=== PATIENT | female | born 1930 | race Caucasian/White ===

== ENCOUNTER → 2017-04-14 | Outpatient (CLI) | payer MEDICARE, OTHER | END | disposition home or self-care (01) | LOC: LABPAT 15:12 | PROVIDERS: ATTEND Orthopaedic Surgery | DX: Z01.812 Encounter for preprocedural laboratory examination (principal) | CPT/HCPCS: 87070 ==

== ENCOUNTER 2017-04-29 10:37 | Inpatient (IN) | payer MEDICARE, OTHER ==
[2017-04-20 13:50] VITALS: BMI 26.5
[~2017-04-29 10:37] MED LIST: ACETAMINOPHEN TAB 500 MG TAB PO ONE; DEXAMETHASONE SOD PHOSPHATE 10 MG/ML 1 ML VIAL IV ONE; HYDROmorphone 1 MG/ML 1 ML SYRINGE IVP PRN; MELOXICAM 7.5 MG TAB PO ONE; MIDAZOLAM 2 MG/2 ML VIAL IV PRN; ONDANSETRON 4 MG/2 ML VIAL IVP ONE; TRANEXAMIC ACID 1,000 MG in SODIUM CHLORIDE 0.9% 100 ML IVPB ONE; ceFAZolin 2 GM in SODIUM CHLORIDE 0.9% 100 ML IVPB ONE
[2017-04-29] MEDS: LACTATED RINGERS 1,000 ML IV SCH (11:11)
[2017-04-29] MEDS ORDERED: LIDOCAINE 1% 20 ML VIAL (10MG/ML) FOR IV START INTRADERMA ONE (11:12)
[2017-04-29] MEDS ORDERED: ROPIVACAINE 246.25 MG, EPINEPHrine 0.5 MG, KETOROLAC 30 MG, cloNIDine HCL/PF 80 MCG, WA... MISCELLANE ONE ×5 (11:19)
[2017-04-29] MEDS ORDERED: NA PHOS,M-B/NA PHOS,DI-BA 133 ML ENEMA RECTAL PRN (11:22)
[2017-04-29] MEDS ORDERED: HYDROcodone/APAP 5-325MG 1 EACH TAB PO PRN ×2 (11:22)
[2017-04-29] MEDS ORDERED: HYDROmorphone 1 MG/ML 1 ML SYRINGE IVP PRN ×2 (11:22)
[2017-04-29] MEDS ORDERED: NALOXONE 0.4 MG/ML 1 ML VIAL IV PRN (11:22)
[2017-04-29] MEDS ORDERED: MAGNESIUM HYDROXIDE 2,400 MG/10 ML CUP PO PRN (11:22)
[2017-04-29] MEDS ORDERED: BISACODYL 10 MG SUPP RECTAL PRN (11:22)
[2017-04-29] MEDS ORDERED: DIAZEPAM 5 MG TAB PO PRN ×2 (11:22)
[2017-04-29] MEDS ORDERED: fentaNYL (PF) 50 MCG/ML 2 ML AMP IVP ONE (11:27)
[2017-04-29] MEDS ORDERED: PROPOFOL 10 MG/ML 20 ML VIAL IV ONE (12:29)
[2017-04-29] MEDS ORDERED: KETAMINE 10 MG/ML 20 ML VIAL ONE (12:29)
[2017-04-29] MEDS ORDERED: SODIUM CHLORIDE 0.9% 100 ML BAG ONE (12:29)
[2017-04-29] MEDS ORDERED: MIDAZOLAM 2 MG/2 ML VIAL ONE (12:29)
[2017-04-29] MEDS ORDERED: TRANEXAMIC ACID 1,000 MG/10 ML VIAL ONE (12:29)
[2017-04-29] MEDS ORDERED: ROPIVACAINE 1,100 MG, SODIUM CHLORIDE 0.9% 330 ML MISCELLANE PRN ×2 (13:46)
--- NOTE | 2017-04-29 13:48 | P.ONQ ---
Anesthesiology Proc Note - PNB - Peripheral Nerve Block Performed Left Adductor Canal Infusion Time Out Performed: Yes Indication: Acute Post-Operative Pain, Analgesia Specifically requested for management of pain by DrCody: Karl Valencia Sedation Type: Sedate with meaningful contact maintained Preparation: Sterile Prep Position: Supine Catheter Depth at Skin (cm): 6 Catheter: Indwelling Needle Types: Other (see comment) (pajunk) Needle Size: 100mm (4") Needle Gauge: 20 Technique: Ultrasound Injectate: 0.5% Ropivacaine (see comment for volume) (20cc) Blood Aspirated: No Pain Paresthesia on Injection Noted: No Resistance on Injection: Normal Events: Uneventful and Well Tolerated
--- NOTE | 2017-04-29 14:06 | P.OP ---
Date of Procedure: 04/29/17 Preoperative Diagnosis: Severe osteoarthritis left knee Postoperative Diagnosis: Severe osteoarthritis left knee Procedure(s) Performed: Left total knee arthroplasty Implants: Reid [employer] Nephew Oxinium femoral component size 5, left Reid & Nephew Graciela II left nonporous tibial baseplate size 4 Reid [employer] Nephew size 11 mm Legion XLPE high flexion articular insert, size 3-4 Reid [employer] Nephew Graciela II resurfacing patellar component, 32 mm All components were cemented using Nuno Palacos bone cement.. The articulation is ceramic on polyethylene. Anesthesia: spinal Surgeon: Karl Valencia High [facility] Justice #1: Geni Gomez Estimated Blood Loss (ml): 50 Pathology: other (Bone and cartilage) Condition: stable Disposition: PACU Indications for Procedure: After failure of conservative treatment we discussed the surgical and nonsurgical treatment options at length. Patient wishes to proceed with a total knee arthroplasty. Complications specific to this procedure were discussed at length, including but not limited to infection, bleeding, stiffness , and nerve injury. Patient is aware of all these complications and informed consent was obtained Operative Findings: The operative findings are consistent with severe osteoarthritis of the right knee Description of Procedure: Patient was seen in the preoperative area consent was reviewed and operative site was marked with a skin marker. An adductor canal pain catheter was placed by anesthesia in the preoperative area. Patient was then brought to the operating room and given preoperative antibiotics intravenously. A spinal anesthetic was administered by the anesthesia department. A tourniquet was placed on the upper thigh and the lower extremity was prepped and draped in usual sterile fashion. A gram of transexamic acid was given. A universal timeout was then performed which confirmed the patient's name, surgical site, ALLERGIES, and consent. The lower extremity was then exsanguinated and tourniquet was inflated to 250 mmHg. A standard and anterior midline approach to the knee was performed. The skin and subcutaneous tissue was dissected down to the patellar tendon. A medial parapatellar arthrotomy was then performed. The knee was then extended, the patellar was everted, and the knee was again flexed. Anterior horns of both menisci were excised, and a release was performed to the posterior medial aspect of the knee. On gross visual inspection, there was complete loss of articular cartilage in the medial and patellofemoral joint spaces. There was also significant cartilage damage in the lateral compartment. There were multiple periarticular osteophytes which were then removed with a Ronguer. The femoral canal was then opened with the appropriate drill, and the intramedullary femoral cutting guide was then placed and set for 4 of valgus. The distal femoral cutting block was then pinned in place, and the distal femur was then cut. The cutting block was then removed and the cut was checked for flatness. Next, the sizing guide was then placed and set for 3 external rotation based off of the epicondylar axis and Whitesides line. After the femur was sized, the appropriate 4-in-1 cutting block was then pinned in place. The anterior condyles were cut without notching. The posterior and chamfer cuts were performed while protecting the collateral ligaments. The cutting block was then removed, and the femoral canal was plugged with autologous bone. Attention was then directed to the tibia. The remaining ACL was removed with a Ronguer, and the tibia was then gently subluxed forward with a large bent knee retractor. Any remaining menisci was excised. The posterior lateral corner was cauterized in order to cauterize the lateral geniculate artery. The extra medullary tibial cutting guide was then placed, set for the appropriate rotation , slope, and depth of resection. The proximal tibia cutting guide was then pinned in place. Proximal tibia was then cut and sized. Next trials were then placed with the appropriate-sized insert. The knee was able to fully extend and flex to 130 and was stable throughout all range of motion. The knee was then extended, patella everted. Patella was then measured, and then using an osteotomy guide, the patella was cut at the appropriate level. The patella was then measured and drilled and the patella trial was then placed. The knee was then taken through range of motion with the patella trial and the patella tracked normally. The knee was then extended patella trial was then removed and the patella was everted. Knee was then flexed and lug holes were drilled through the femoral trial and the femoral trial was then removed. The tibial was then exposed, and the tibial broach guide was then pinned in place after it was set for the appropriate rotation to allow for the most coverage without overhang. The tibia was then reamed and broached. The cut surfaces of bone were then irrigated with pulsatile lavage. The posterior structures were injected with the ropivacaine solution. The knee was also irrigated with Irrisept solution. The components were then opened, the cement was mixed, and the components were then cemented in place. The cement was allowed to harden with the knee in full extension. While the cement was hardening, the remaining soft tissues were then injected with a ropivacaine solution, which consisted of 246.25 mg of ropivacaine, 0.5 mg of epinephrine, 30 mg of Toradol, 80 g of clonidine, and 48.45 mL of sterile water, for a total of 100 mL of fluid injected. After the cemented hardened. The tourniquet was released, and hemostasis was obtained. A second gram of transexamic acid was given. The knee was again irrigated. The knee was again taken through range of motion and found to be stable throughout all range of motion of 0-130 , and the patella tracked normally. The fascia was then closed with #2 strata fix suture. The subcutaneous tissue was closed with 3-0 Vicryl and 3-0 strata fix. Dermabond tape was used for the skin and placed with the knee in flexion. The patient was placed in a sterile dressing. Patient was then transferred to recovery room in stable condition. The regulatory affairs assistant RJ Bustillo was required due the complexity surgery and the need for a skilled service assistant. She assisted in positioning, draping, retraction, and closure of the wound.
[2017-04-29] MEDS ORDERED: LACTATED RINGERS 1,000 ML IV ONE (14:25)
--- NOTE | 2017-04-29 15:07 | XR ---
EXAMINATION TYPE: XR knee limited LT DATE OF EXAM: 04/29/2017 COMPARISON: NONE TECHNIQUE: Two views submitted HISTORY: Post op FINDINGS: There is a prosthetic knee in near anatomic alignment. There is soft tissue edema and emphysema. IMPRESSION: 1. Postoperative change. Appears in near-anatomic alignment
--- NOTE | 2017-04-29 17:50 | P.CONS ---
History of Present Illness - Reason for Consult Consult date: 04/29/17 Medical management Requesting physician: Karl Valencia - Chief Complaint Left knee surgery - History of Present Illness Consultation This is a very pleasant [address] Small. Underwent left total knee arthroplasty by Dr. Valencia. Chronic stable medical conditions include hypertension, prostatitis, hypothyroid, varicose veins. Sitting on the bed. Did eat some supper. No nausea vomiting. No chest pain. Breathing is stable. GEN.: Tired EYES: None HEENT: None NECK: None RESPIRATORY: None CARDIOVASCULAR: None GASTROINTESTINAL: None GENITOURINARY: None MUSCULOSKELETAL: [Pain in the joints LYMPHATICS: None HEMATOLOGICAL: None PSYCHIATRY: None NEUROLOGICAL: None Past medical history: Hypertension, osteoporosis, hypothyroid, varicose veins, depression Past surgical history: Cholecystectomy, hysterectomy Social history: Recently lost her boyfriend in 19 years. Does not smoke no alcohol. Family history: Throat cancer Home medications: Reviewed in the computer. ALLERGIES: None VITAL SIGNS: 96.2, 80, 16, 117/59, 99% room air GENERAL: Average built, sitting up, comfortable. EYES: Pupils equal. Conjunctiva normal. HEENT: External appearance of nose and ears normal, oral cavity grossly normal. NECK: JVD not raised; masses not palpable. HEART: First and second heart sounds are normal; no edema. LUNGS: Respiratory rate normal; clear to auscultation. ABDOMEN: Soft, nontender, liver spleen not palpable, no masses palpable. LYMPHATICS: No lymph nodes palpable in the axilla and neck. PSYCH: Alert and oriented x3; mood and affect normal. NEUROLOGICAL: Cranial nerves grossly intact; no facial asymmetry, power and sensation grossly intact. MUSCULOSKELETAL left knee and a dressing. Evidence of arthritis making the hands Investigations: None today Assessment: -Left total knee arthroplasty Essential hypertension Primary osteoarthritis Plan: Patient is an aspirin 325 mg by mouth twice a day for DVT prophylaxis per Dr. Valencia. Care was discussed with the patient. Home medications were resumed. Thank you Dr. Valencia Past Medical History Past Medical History: Hypertension, Osteoarthritis (OA), Thyroid Disorder Additional Past Medical History / Comment(s): varicose veins,Osteoporosis. History of Any Multi-Drug Resistant Organisms: None Reported Past Surgical History: Cholecystectomy, Hysterectomy Past Anesthesia/Blood Transfusion Reactions: No Reported Reaction Additional Past Anesthesia/Blood Transfusion Reaction / Comm: no hx blood transfusion Past Psychological History: Depression Additional Psychological History / Comment(s): Recently lost boyfriend of 19 years. Smoking Status: Former smoker Past Alcohol Use History: None Reported Additional Past Alcohol Use History / Comment(s): smoked short time as a teenager Past Drug Use History: None Reported - Past Family History Brother(s) Family Medical History: Cancer Additional Family Medical History / Comment(s): Throat cancer. Sister(s) Family Medical History: No Reported History Medications and Allergies Home Medications Medication Instructions Recorded Confirmed Type Alendronate Sodium [Fosamax] 70 mg PO WEEKLY 12/31/15 04/29/17 History amLODIPine [Norvasc] 5 mg PO QAM 12/31/15 04/29/17 History Ibuprofen [Motrin] 200 - 400 mg PO Q6HR PRN 04/20/17 04/29/17 History Allergies Allergy/AdvReac Type Severity Reaction Status Date / Time No Known Allergies Allergy Verified 04/20/17 13:34
[2017-04-29] MEDS: traMADol 50 MG TAB PO PRN (22:01)
[2017-04-29] MEDS: ASPIRIN 325 MG TAB PO SCH (22:01)
[2017-04-29] MEDS: ceFAZolin 2 GM in SODIUM CHLORIDE 0.9% 100 ML IVPB SCH (22:01)
[2017-04-30] MEDS: SODIUM CHLORIDE 0.9% 1,000 ML IV SCH ×3 (04:20→22:18)
[2017-04-30] MEDS: traMADol 50 MG TAB PO PRN ×3 (04:55→21:09)
[2017-04-30] MEDS: ceFAZolin 2 GM in SODIUM CHLORIDE 0.9% 100 ML IVPB SCH (04:55)
[2017-04-30] MEDS: LACTATED RINGERS 1,000 ML IV SCH (07:39)
[2017-04-30 08:22] LABS: Basophils % (A) 0 %; CH 31.8; CHCM 32.9; Eosinophils % (A) 0 %; HCT 38.8 % (34.0-46.0); HDW 2.48; HGB 12.2 gm/dL (11.4-16.0); Luc # (Auto) 0.16; Luc % (Auto) 1; Lymphocytes # (A) 0.8 k/uL (1.0-4.8); Lymphocytes % (A) 5 %; MCH 30.5 pg (25.0-35.0); MCHC 31.4 g/dL (31.0-37.0); MCV 97.1 fL (80.0-100.0); Mean Platelet Volume 8.1; Monocytes # (A) 0.7 k/uL (0-1.0); Monocytes % (A) 4 %; Neutrophils # (A) 14.4 k/uL (1.3-7.7); Neutrophils % (A) 90 %; RDW 14.6 % (11.5-15.5); WBC 16.1 k/uL (3.8-10.6)
[2017-04-30] MEDS: MELOXICAM 7.5 MG TAB PO SCH (09:11)
[2017-04-30] MEDS: ASPIRIN 325 MG TAB PO SCH ×2 (09:11→21:09)
--- NOTE | 2017-04-30 09:48 | P.PN ---
Progress Note - Text 0930 anesthesia POD 1. Patient is status post left TKR under spinal anesthesia with a left adductor canal catheter placed for postoperative pain relief. With 0.2% ropivacaine running at 8 mL per hour patient is pain-free in the anterior aspect of the knee. Catheter site is clean, dry, and intact.
[2017-04-30] MEDS: ONDANSETRON 4 MG/2 ML VIAL IVP PRN (11:54)
--- NOTE | 2017-04-30 12:13 | P.PN ---
Progress Note - Text Patient is a very pleasant 87-year-old female who is seen and examined at the bedside for further evaluation after undergoing a left total knee arthroplasty performed by Dr. Karl Valencia yesterday, 04/29/2017. Patient has been able to ambulate the hallways this morning with the assistance of physical therapy. She does continue to have pain at her left knee but states she is getting some relief of pain with the On-Q pain pump. She has been eating and voiding without difficulty. She does not have a large appetite. She does not have a Kurtz catheter intact. She is currently planning for discharge to rehab this coming 05/02/2017. Physical Exam Total Knee Arthroplasty: Status post surgical day number 1 Patient is awake, alert, and oriented 3 Vital signs stable Good chest excursion with deep inspiration and expiration Abdomen soft nontender No signs or symptoms of DVT; no calf pain Dressing over the left knee is clean, dry, and intact; no erythema, purulence, or signs of infection On-Q pain pump remains intact Patient has full foot and ankle motion without difficulty bilateral lower extremities Dorsiflexion, plantar flexion, and extensor hallucis longus positive sustained bilaterally Neurovascular status left lower extremity intact Capillary refill lower extremity is bilaterally less than 2 seconds Assessment: Status post left total knee arthroplasty for left knee osteoarthritis Plan: 1. Patient to remain weight-bear as tolerated on the lower extremity; patient may work with physical therapy to increase mobility and ambulation 2. Continue pain control; patient will continue with On-Q pain pump as prescribed and monitored by anesthesia 3. Medicine to continue following the patient for his other medical issues 4. Patient to continue with anticoagulation therapy; patient currently on aspirin 325 mg twice a day 5. We'll continue to follow the patient 6. Patient will more than likely remain in the hospital over the weekend with plans to be discharged to rehabilitation facility this coming 05/02/2017 7. Patient can follow-up with Dr. Karl Valencia at [facility] in 2-3 weeks following discharge
--- NOTE | 2017-04-30 14:48 | P.PN ---
<Gracy Bender - Last Filed: 04/30/17 14:38> Progress Note - Text DATE OF SERVICE: 04/30/2017 PRESENTING COMPLAINT: Left knee pain, status post surgery-medical management INTERVAL HISTORY: 87-year-old patient postop day 1 from a left total knee arthroplasty. 04/30/2017: Patient seen in follow-up today, ambulatory with physical therapy, left knee pain fairly well controlled, tolerating her diet however does not feel hungry, passing gas, no BM yet. REVIEW OF SYSTEMS: Done for constitutional ,cardiovascular, GI, pulmonary with relevant findings as above. CURRENT MEDICATIONS Aspirin, Dulcolax, Valium, Vistaril, mobile, on Q pain pump, Ultram. PHYSICAL EXAM VITAL SIGNS: Temperature 97.7, pulse 78, respiratory rate 16, blood pressure 136/66, oxygen saturation 93% on room air. GENERAL APPEARANCE: . Lying in bed, not in distress. EYES: Pupils equal. Conjunctiva normal. NECK: JVD not raised. Mass not palpable. RESPIRATORY: Respiratory effort normal. Lungs clear to auscultation. CARDIOVASCULAR: First and second sounds normal. No edema. ABDOMEN: Soft. Liver and spleen not palpable. No tenderness. No mass palpable. PSYCHIATRY: Alert and oriented x3. Mood and affect normal. 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 Robb <Noah Robb - Last Filed: 04/30/17 17:14> Progress Note - Text Attending note. Date of service-04/30/2017 This patient was seen and examined by me . Discussed the patient with my nurse practitioner Ms. Bender. Sitting on her bed. Comfortable. Pain better controlled. Tolerating her meals. On examination: Lungs-clear, cardiovascular first seconds are normal Investigations: White count 16.1 Assessment and plan: Leukocytosis reactive from surgery. no evidence of infection. Continue current medication treatment plan.
[2017-04-30] MEDS: HYDROmorphone 1 MG/ML 1 ML SYRINGE IVP PRN (17:13)
[2017-05-01] MEDS: HYDROmorphone 1 MG/ML 1 ML SYRINGE IVP PRN ×2 (01:05→07:47)
[2017-05-01] MEDS: traMADol 50 MG TAB PO PRN ×2 (03:36→11:04)
[2017-05-01] MEDS: LACTATED RINGERS 1,000 ML IV SCH (05:47)
[2017-05-01] MEDS: ONDANSETRON 4 MG/2 ML VIAL IVP PRN (07:50)
[2017-05-01] MEDS: HYDROcodone/APAP 5-325MG 1 EACH TAB PO PRN ×2 (09:04→14:12)
[2017-05-01] MEDS: ASPIRIN 325 MG TAB PO SCH ×2 (09:05→19:57)
[2017-05-01] MEDS: MELOXICAM 7.5 MG TAB PO SCH (09:05)
[2017-05-01] MEDS: amLODIPine 5 MG TAB PO SCH (09:05)
[2017-05-01] MEDS ORDERED: ONDANSETRON 4 MG/2 ML VIAL IVP PRN (10:20)
--- NOTE | 2017-05-01 10:56 | P.PN ---
Progress Note - Text Patient is a very pleasant 87-year-old female who is seen and examined at the bedside for further evaluation after undergoing a left total knee arthroplasty performed by Dr. Karl Valencia 04/29/2017. Patient has been able to ambulate the hallways this morning with the assistance of physical therapy. She states she ambulated twice yesterday and after her second session of ambulation she has been having increased pain in the left knee while doing activities with the left knee. Her pain is well-controlled at rest. She does continue to receive some pain control with the On-Q pain pump. She has been eating and voiding without difficulty. She does not have a large appetite. She is currently planning for discharge to rehab this coming 05/02/2017. She states she is not having relief of symptoms with tramadol. She states she has not had difficulty with hydrocodone in the past. Physical Exam Total Knee Arthroplasty: Status post surgical day number 2 Patient is awake, alert, and oriented 3 Vital signs stable Good chest excursion with deep inspiration and expiration Abdomen soft nontender No signs or symptoms of DVT; no calf pain Dressing over the left knee is clean, dry, and intact; no erythema, purulence, or signs of infection Some generalized pain with palpation over the left knee Some mild generalized swelling over the left knee On-Q pain pump remains intact Patient has full foot and ankle motion without difficulty bilateral lower extremities Dorsiflexion, plantar flexion, and extensor hallucis longus positive sustained bilaterally Neurovascular status left lower extremity intact Capillary refill lower extremity is bilaterally less than 2 seconds Assessment: Status post left total knee arthroplasty for left knee osteoarthritis Plan: 1. Patient to remain weight-bear as tolerated on the lower extremity; patient may work with physical therapy to increase mobility and ambulation 2. Continue pain control; patient will continue with On-Q pain pump as prescribed and monitored by anesthesia; we will discontinue tramadol; will start Anthony 5 mg/325 mg 1 tab every 6 hours as needed for pain 3. Medicine to continue following the patient for his other medical issues 4. Patient to continue with anticoagulation therapy; patient currently on aspirin 325 mg twice a day 5. We'll continue to follow the patient; will also plan to resume her Norvasc home medication as this was not resumed postsurgically 6. Patient will more than likely remain in the hospital over the weekend with plans to be discharged to rehabilitation facility this coming 05/02/2017 7. Patient can follow-up with Dr. Karl Valencia at [facility] in 2-3 weeks following discharge
[2017-05-01] MEDS: hydrOXYzine PAMOATE 25 MG CAP PO PRN ×2 (11:04→18:15)
--- NOTE | 2017-05-01 11:38 | P.PN ---
Progress Note - Text 104 anesthesia POD 2. Patient is status post left TKA under spinal anesthesia with a left adductor canal catheter placed for postoperative pain relief. With ropivacaine 0.2% running at 8 mL per hour patient is pain free at rest with a VAS of 4 ambulating. Catheter site is clean dry and its dressing is intact.
[2017-05-01] MEDS: SODIUM CHLORIDE 0.9% 1,000 ML IV SCH (12:35)
--- NOTE | 2017-05-01 18:51 | P.PN ---
<Gracy Bender - Last Filed: 05/01/17 18:45> Progress Note - Text DATE OF SERVICE: 05/01/2017 PRESENTING COMPLAINT: Left knee pain, status post surgery-medical management HISTORY OF PRESENT ILLNESS: 87-year-old patient postop day 1 from a left total knee arthroplasty. INTERVAL HISTORY: 04/30/2017 Patient seen in follow-up today, anxious appearing, ambulatory with physical therapy however complains of extreme left knee pain unable to bend her left knee at all. Tolerating her diet, complains of not feeling hungry eating about 30-50% of her meals, passing gas, no BM yet. 04/30/2017: Patient seen in follow-up today, ambulatory with physical therapy, left knee pain fairly well controlled, tolerating her diet however does not feel hungry, passing gas, no BM yet. REVIEW OF SYSTEMS: Done for constitutional ,cardiovascular, GI, pulmonary musculoskeletal with relevant findings as above. CURRENT MEDICATIONS Aspirin, Dulcolax, Valium, Vistaril, mobile, on Q pain pump, Ultram. PHYSICAL EXAM VITAL SIGNS: Temperature 98.1, pulse 78, respirations 17, blood pressure once 56/72, oxygen saturation 97% on room air. GENERAL APPEARANCE: . Sitting up in her recliner not in distress. EYES: Pupils equal. Conjunctiva normal. NECK: JVD not raised. Mass not palpable. RESPIRATORY: Respiratory effort normal. Lungs clear to auscultation. CARDIOVASCULAR: First and second sounds normal. No edema. ABDOMEN: Soft. Liver and spleen not palpable. No tenderness. No mass palpable. PSYCHIATRY: Alert and oriented x3. Mood and affect anxious. MUSCULOSKELETAL: Right knee surgical dressing in place, swelling noted to right knee. , INVESTIGATIONS: None new ASSESSMENT: -Left total knee arthroplasty, postop day 2 -Leukocytosis as an acute phase reactant to surgery -Essential hypertension -Primary osteoarthritis PLAN: Continue to work with physical therapy, pain managed by orthopedics. 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 Robb <Noah Robb - Last Filed: 05/01/17 21:49> Progress Note - Text Attending note. Date of service-05/01/2017 This patient was seen and examined by me . Discussed the patient with my nurse practitioner Ms. Bender. Some pain in the operative knee. Very slight nausea. Did tolerate her diet. On examination: Lungs-clear, cardiovascular-first seconds are normal Investigations: Assessment and plan: Left total knee arthroplasty. Stable continue current medication treatment plan
[2017-05-01] MEDS ORDERED: LACTULOSE 20 GM/30 ML CUP PO ONE (19:00)
[2017-05-02 03:06] VITALS: RESP 16
[2017-05-02] MEDS: HYDROcodone/APAP 5-325MG 1 EACH TAB PO PRN (05:28)
[2017-05-02 07:42] LABS: Basophils % (A) 0 %; CHCM 32.7; Eosinophils # (A) 0.1 k/uL (0-0.7); Eosinophils % (A) 2 %; HCT 36.8 % (34.0-46.0); HDW 2.44; HGB 11.6 gm/dL (11.4-16.0); Luc # (Auto) 0.13; Luc % (Auto) 2; Lymphocytes # (A) 0.8 k/uL (1.0-4.8); Lymphocytes % (A) 12 %; MCHC 31.5 g/dL (31.0-37.0); MCV 98.4 fL (80.0-100.0); Monocytes # (A) 0.6 k/uL (0-1.0); Monocytes % (A) 8 %; Neutrophils # (A) 5.3 k/uL (1.3-7.7); Neutrophils % (A) 76 %; RBC 3.74 m/uL (3.80-5.40); WBC (Perox) 7.45
[2017-05-02] MEDS: LACTATED RINGERS 1,000 ML IV SCH (09:04)
[2017-05-02] MEDS: SODIUM CHLORIDE 0.9% 1,000 ML IV SCH (09:04)
[2017-05-02] MEDS: MELOXICAM 7.5 MG TAB PO SCH (09:06)
[2017-05-02] MEDS: amLODIPine 5 MG TAB PO SCH (09:06)
[2017-05-02] MEDS: ASPIRIN 325 MG TAB PO SCH (09:06)
[2017-05-02] MEDS: hydrOXYzine PAMOATE 25 MG CAP PO PRN ×2 (09:06→15:51)
[2017-05-02] MEDS ORDERED: HYDROcodone/APAP 7.5-325MG 1 EACH TAB PO PRN (10:24)
--- NOTE | 2017-05-02 10:24 | P.DS ---
Providers Date of admission: 04/29/17 10:37 Expected date of discharge: 05/02/17 Attending physician: Karl Valencia Consults: 04/29/17 11:22 Consult Physician Routine Consulting Provider: Brown Burns Consult Reason/Comments: medical management Do you want consulting provider notified?: Yes 04/29/17 15:24 Consult Physician Routine Consulting Provider: Noah Robb Consult Reason/Comments: medical management Do you want consulting provider notified?: Yes Primary care physician: Brown Burns - Discharge Diagnosis(es) (1) Primary localized osteoarthritis of left knee Current Visit: Yes Status: Acute (2) S/P total knee arthroplasty Current Visit: Yes Status: Acute (3) Osteoarthritis of left knee Current Visit: Yes Status: Acute Hospital Course: This is a 87-year-old female with known history of degenerative arthritis of the left knee. The patient presents for evaluation. After discussion and consideration patient elects to proceed with total knee arthroplasty. The patient is seen preoperatively by Dr. Valencia and cleared for surgery. Patient is admitted to [facility] on 04/29/2017 for total knee arthroplasty. The procedures performed without complication or sequelae. The patient is doing well postoperatively. Labs and vital signs are stable on day of discharge. On day of discharge patient's knee incision is healing well. There is minimal erythema. There is minimal drainage noted at this time. There is minimal soft tissue swelling to the knee. Patient has full foot and ankle motion. Neurovascular status to the left lower extremity is intact. Patient is discharged to rehab in good condition. Please see med rec for accurate list of home medications. Plan - Discharge Summary New Discharge Prescriptions: New Aspirin 325 mg PO BID #60 tab Sennosides-Docusate Sodium [Senokot-S] 1 tab PO BID #60 tablet HYDROcodone/APAP 7.5-325MG [Olpe 7.5-325] 1 - 2 tab PO Q4-6H PRN #90 tab PRN Reason: Pain No Action amLODIPine [Norvasc] 5 mg PO QAM Alendronate Sodium [Fosamax] 70 mg PO WEEKLY Ibuprofen [Motrin] 200 - 400 mg PO Q6HR PRN PRN Reason: Pain Discharge Medication List Alendronate Sodium [Fosamax] 70 mg PO WEEKLY 12/31/15 [History] amLODIPine [Norvasc] 5 mg PO QAM 12/31/15 [History] Ibuprofen [Motrin] 200 - 400 mg PO Q6HR PRN 04/20/17 [History] Aspirin 325 mg PO BID #60 tab 04/29/17 [Rx] Sennosides-Docusate Sodium [Senokot-S] 1 tab PO BID #60 tablet 04/29/17 [Rx] HYDROcodone/APAP 7.5-325MG [Olpe 7.5-325] 1 - 2 tab PO Q4-6H PRN #90 tab [Rx] Follow up Appointment(s)/Referral(s): Karl Valencia DO [Doctor of Osteopathic Medicine] - 2 Weeks Ambulatory/Diagnostic Orders: Continuous Passive Motion (CPM) Machine [DME.AMB1] Time Frame: 2 Weeks, Location : Determined By Patient Activity/Diet/Wound Care/Special Instructions: Weightbearing as tolerated with a walker CPM 5-6h daily Daily dressing changes, keep incision clean and dry May shower if no drainage from incision [facility] with questions or concerns [phone] Discharge Disposition: TRANSFER TO SNF/ECF
[2017-05-02] MEDS: HYDROcodone/APAP 7.5-325MG 1 EACH TAB PO PRN ×2 (10:30→15:50)
[2017-05-02 14:16] VITALS: BP 164/67; PULSE 96; TEMP 98.1
--- NOTE | 2017-05-02 19:23 | PN ---
DATE OF SERVICE: 05/02/2017 PRESENTING COMPLAINT: Left knee surgery. INTERVAL HISTORY: The patient is status post knee surgery. Pain is better controlled. It ( ) physical therapy. No nausea or vomiting. Did tolerate a diet. Sitting up in chair. REVIEW OF SYSTEMS: CONSTITUTIONAL: None. CARDIOVASCULAR: None. GI: None. PULMONARY: None. Findings as above. Current medications reviewed. On examination, temperature is 98.3, pulse 85, respirations 16, blood pressure 147/72, pulse ox 92% on room air. GENERAL APPEARANCE: Sitting up in a chair, awake, EYES: Pupils equal. Conjunctivae normal. NECK: JVD not raised. Mass not palpable. RESPIRATORY EFFORT: Normal. LUNGS: Clear. CARDIOVASCULAR: First and second normal. No edema. ABDOMEN: Soft, nontender. Liver and spleen not palpable. PSYCHIATRY: Alert and oriented x3. Mood and affect are normal. MUSCULOSKELETAL: Right knee in a dressing. INVESTIGATIONS: White count 7, hemoglobin 11.6. ASSESSMENT: 1. Left total knee arthroplasty. 2. Leukocytosis as an acute phase reaction to surgery, improved. 3. Essential hypertension. 4. Primary osteoarthritis. PLAN: Care was discussed with the patient. Doing well. After discharge should follow up with her family doctor. [facility]
== END 2017-05-02 16:00 | DRG 470 ==
LOC: 2ORMAIN 10:37 → 3SUR 14:41
PROVIDERS: ADMIT Orthopaedic Surgery; ATTEND Orthopaedic Surgery
PROC: 0SRD0J9 Replacement of Left Knee Joint with Synthetic Substitute, Cemented, Open Approach (ICD-10-PCS; principal; 2017-04-29 12:30)
DX: M17.12 Unilateral primary osteoarthritis, left knee (principal); I10 Essential (primary) hypertension; D72.829 Elevated white blood cell count, unspecified; F32.9 Major depressive disorder, single episode, unspecified; S83.242A Other tear of medial meniscus, current injury, left knee, initial encounter; E03.9 Hypothyroidism, unspecified; I83.90 Asymptomatic varicose veins of unspecified lower extremity; M81.0 Age-related osteoporosis without current pathological fracture; M11.262 Other chondrocalcinosis, left knee; Z79.899 Other long term (current) drug therapy; Z87.891 Personal history of nicotine dependence; X58.XXXA Exposure to other specified factors, initial encounter; Y92.9 Unspecified place or not applicable
CPT/HCPCS: 85025; 88300